=== PATIENT | male | born 1975 | race Two or more races ===

== ENCOUNTER 2018-06-13 18:26 | Emergency (ER) | payer SELFPAY ==
[~2018-06-13] VITALS: Ht 177.8 cm; Wt 89.2 kg
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
[2018-06-13] MEDS ORDERED: KETOROLAC 15 MG/ML VIAL. IV ONE (19:30)
[2018-06-13 19:51] VITALS: BP 133/77
[2018-06-13] MEDS ORDERED: MELO7.5T29 PO (21:12)
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
== END 2018-06-13 21:17 | disposition home or self-care (01) ==
LOC: ER 18:26
DX: S40.011A Contusion of right shoulder, initial encounter (principal); S80.211A Abrasion, right knee, initial encounter; F17.200 Nicotine dependence, unspecified, uncomplicated; V09.9XXA Pedestrian injured in unspecified transport accident, initial encounter; Y93.01 Activity, walking, marching and hiking; Y92.410 Unspecified street and highway as the place of occurrence of the external cause; Y99.8 Other external cause status
CPT/HCPCS: 73030; 96374; 99285; J1885